=== PATIENT | male | born 1950 | race African-American/Black ===

== ENCOUNTER 2016-08-25 04:14 | Emergency (ER) | payer MEDICARE, OTHER ==
[~2016-08-25] VITALS: Ht 177.8 cm; Wt 87.0 kg
[~2016-08-25 04:14] MED LIST: ASPI325T2 PO; IBUP-1510 PO; LEVE1000 PO; LOSA50TA20 PO; MULT-1146 PO; NIFE30TA94 PO
[2016-08-25] MEDS ORDERED: MORPHINE SULFATE 4 MG/ML CPJ (NOT FOR IM USE) IV ONE ×2 (05:15→06:00)
[2016-08-25] MEDS ORDERED: ONDANSETRON HCL 4MG/2ML VIAL IV ONE (05:15)
[2016-08-25 05:23] LABS: BASOPHILS % 0.9 % (0.0-2.0); EOSINOPHILS % 4.5 % (0.0-5.0); HEMATOCRIT. 34.7 % (42.0-52.0); HEMOGLOBIN. 12.5 g/dL (14.0-18.0); LYMPHOCYTES % 42.1 % (20.0-50.0); MEAN CORPUSCULAR HEMOGLOBIN 30.4 pg (28.0-32.0); MEAN CORPUSCULAR HGB CONC 35.9 g/dL (31.0-37.0); MEAN CORPUSCULAR VOLUME 84.6 fL (80.0-94.0); MEAN PLATELET VOLUME 7.8 fl (7.4-10.4); MONOCYTES % 8.4 % (2.0-8.0); NEUTROPHILS % 44.1 % (40.0-76.0); PLATELET 252 x1000/uL (130-400); RED CELL DISTRIBUTION WIDTH 14.4 % (11.6-14.6); WHITE BLOOD COUNT 6.7 x1000/uL (4.5-11.0)
[2016-08-25 05:29] LABS: CHLORIDE 111 mEq/L (98-107); INDEX HEMOLYSI 1 (1-3); INDEX ICTERIC 1 (1-4); INDEX LIPEMIC 1 (1-3)
[2016-08-25 05:37] LABS: ALANINE AMINOTRANSFERASE 18 IU/L (13-61); ALBUMIN 3.4 g/dL (3.4-5.0); ANION GAP 11; CALCIUM 8.7 mg/dL (8.5-10.1); CARBON DIOXIDE 26 mEq/L (21-32); UREA NITROGEN BLOOD 12 mg/dL (7-21); eGFR > 60 mL/min (>60)
[2016-08-25] MEDS ORDERED: CLONIDINE 0.2MG TABLET PO ONE (06:15)
[2016-08-25] MEDS ORDERED: LABETALOL HCL 20MG/4ML CARPUJECT IV PRN (07:15)
[2016-08-25] MEDS ORDERED: LABETALOL 5MG/ML SYR 20 MG/4 ML SYRINGE IV PRN (07:50)
[2016-08-25 09:34] VITALS: BP 141/95
== END 2016-08-25 09:37 | disposition home or self-care (01) ==
LOC: ER 04:18
DX: R51 Headache (principal); I10 Essential (primary) hypertension; F17.210 Nicotine dependence, cigarettes, uncomplicated; Z79.82 Long term (current) use of aspirin; Z88.8 Allergy status to other drugs, medicaments and biological substances; Z79.899 Other long term (current) drug therapy
CPT/HCPCS: 36415; 70450; 80053; 85025; 96374; 96375; 96376; 99285; J2270; J2405; J3490; Z7610

== ENCOUNTER 2016-09-22 00:12 | Emergency (ER) | payer MEDICARE, OTHER ==
[~2016-09-22] VITALS: Ht 177.8 cm; Wt 86.0 kg
[~2016-09-22 00:12] MED LIST changes: +ASPI-986 PO; -ASPI325T2 PO
[2016-09-22] MEDS ORDERED: METOCLOPRAMIDE HCL 10MG/2ML VIAL IV ONE (02:45)
[2016-09-22] MEDS ORDERED: DIPHENHYDRAMINE 50MG/ML VIAL IV ONE (02:45)
[2016-09-22 05:05] VITALS: BP 144/88
== END 2016-09-22 05:05 | disposition home or self-care (01) ==
LOC: ER 00:12
DX: R51 Headache (principal); I10 Essential (primary) hypertension; I25.2 Old myocardial infarction; Z87.891 Personal history of nicotine dependence; Z88.8 Allergy status to other drugs, medicaments and biological substances; Z79.82 Long term (current) use of aspirin
CPT/HCPCS: 70450; 96374; 96375; 99284; J1200; J2765

== ENCOUNTER 2016-12-02 18:29 | Emergency (ER) | payer MEDICARE, OTHER ==
[~2016-12-02] VITALS: Ht 175.3 cm; Wt 80.0 kg
[~2016-12-02 18:29] MED LIST changes: -IBUP-1510 PO; +IBUP-2030 PO
[2016-12-02] MEDS ORDERED: LOSARTAN POTASSIUM 50 MG TABLET PO SCH (23:15)
[2016-12-02] MEDS ORDERED: HYDROCODONE/ACETAMINOPHEN 5/325MG TABLET PO NR (23:16)
[2016-12-02 23:46] LABS: EOSINOPHILS % 4.3 % (0.0-5.0); MEAN CORPUSCULAR HEMOGLOBIN 30.6 pg (28.0-32.0); MONOCYTES % 9.8 % (2.0-8.0)
[2016-12-02 23:50] LABS: CHLORIDE 108 mEq/L (98-107)
[2016-12-02 23:51] LABS: PROTHROMBIN TIME 10.7 sec (9.4-11.6)
[2016-12-02 23:59] LABS: CARBON DIOXIDE 26 mEq/L (21-32); ETHANOL BLOOD < 10 mg/dL
[2016-12-03 00:11] LABS: BASOPHILS % 0.7 % (0.0-2.0); HEMATOCRIT. 38.3 % (42.0-52.0); HEMOGLOBIN. 13.7 g/dL (14.0-18.0); LYMPHOCYTES % 36.7 % (20.0-50.0); MEAN CORPUSCULAR VOLUME 85.2 fL (80.0-94.0); MEAN PLATELET VOLUME 8.3 fl (7.4-10.4); NEUTROPHILS % 48.5 % (40.0-76.0); PLATELET 282 x1000/uL (130-400); RED BLOOD CELL COUNT 4.49 mill/uL (4.7-6.1); RED CELL DISTRIBUTION WIDTH 13.4 % (11.6-14.6)
[2016-12-03 00:28] LABS: CLARITY URINE CLEAR (CLEAR); COLOR URINE YELLOW (YELLOW); GLUCOSE URINE NEGATIVE (NEGATIVE); KETONES URINE NEGATIVE (NEGATIVE); LEUKOCYTE ESTERASE URINE NEGATIVE (NEGATIVE); NITRITE URINE NEGATIVE (NEGATIVE); OCCULT BLOOD URINE NEGATIVE (NEGATIVE); PROTEIN URINE NEGATIVE (NEGATIVE)
[2016-12-03 00:40] LABS: *AMPHETAMINES SCREEN URINE NEGATIVE (NEGATIVE); *BARBITURATES SCREEN URINE NEGATIVE (NEGATIVE); *BENZODIAZEPINES SCREEN URINE NEGATIVE (NEGATIVE); *COCAINE SCREEN URINE NEGATIVE (NEGATIVE); CANNABINOID URINE SCREEN NEGATIVE (NEGATIVE); METHADONE URINE SCREEN NEGATIVE (NEGATIVE); OPIATES URINE SCREEN PRESUMTIVE POSITIVE (NEGATIVE); PHENCYCLIDINE URINE SCREEN NEGATIVE (NEGATIVE)
[2016-12-03 01:00] VITALS: BP 180/88
== END 2016-12-03 01:00 | disposition home or self-care (01) ==
LOC: ER 18:57
DX: M79.604 Pain in right leg (principal); G89.29 Other chronic pain; I10 Essential (primary) hypertension; I69.351 Hemiplegia and hemiparesis following cerebral infarction affecting right dominant side; Z79.82 Long term (current) use of aspirin; Z98.890 Other specified postprocedural states
CPT/HCPCS: 36415; 80053; 80305; 81003; 85025; 85610; 93005; 93970; 99285; G0482

== ENCOUNTER 2017-01-21 02:09 | Emergency (ER) | payer MEDICARE, OTHER ==
[~2017-01-21] VITALS: Ht 182.9 cm; Wt 91.0 kg
[2017-01-21] MEDS ORDERED: MORPHINE SULFATE 4 MG/ML CPJ (NOT FOR IM USE) IV STA (03:23)
[2017-01-21] MEDS ORDERED: ONDANSETRON HCL 4MG/2ML VIAL IV STA (03:23)
[2017-01-21] MEDS ORDERED: SODIUM CHLORIDE 0.9% 1,000 ML IV ONE (03:23)
[2017-01-21 03:41] LABS: EOSINOPHILS % 5.4 % (0.0-5.0); HEMATOCRIT. 34.8 % (42.0-52.0); HEMOGLOBIN. 12.6 g/dL (14.0-18.0); LYMPHOCYTES % 34.7 % (20.0-50.0); MEAN CORPUSCULAR HEMOGLOBIN 30.6 pg (28.0-32.0); MEAN CORPUSCULAR VOLUME 84.8 fL (80.0-94.0); MEAN PLATELET VOLUME 7.8 fl (7.4-10.4); NEUTROPHILS % 50.9 % (40.0-76.0); PLATELET 285 x1000/uL (130-400); RED CELL DISTRIBUTION WIDTH 13.6 % (11.6-14.6)
[2017-01-21 03:49] LABS: INR 1.1
[2017-01-21 03:55] LABS: CARBON DIOXIDE 27 mEq/L (21-32); CHLORIDE 109 mEq/L (98-107); CREATINE KINASE 232 IU/L (39-308); ETHANOL BLOOD < 10 mg/dL
[2017-01-21] MEDS ORDERED: MORPHINE SULFATE 10 MG/ML CPJ IV NR (04:15)
[2017-01-21] MEDS ORDERED: HYDRALAZINE HCL 50MG TABLET PO ONE (08:45)
[2017-01-21] MEDS ORDERED: ACETAMINOPHEN WITH CODEINE 300/30MG TABLET PO ONE (08:45)
[2017-01-21] MEDS ORDERED: KETOROLAC 30MG/ML VIAL IV ONE (10:15)
[2017-01-21 10:42] VITALS: BP 193/94
== END 2017-01-21 10:55 | disposition home or self-care (01) ==
LOC: ER 02:09
DX: M79.604 Pain in right leg (principal); Z99.3 Dependence on wheelchair; R73.9 Hyperglycemia, unspecified; Z86.73 Personal history of transient ischemic attack (TIA), and cerebral infarction without residual deficits; G89.29 Other chronic pain
CPT/HCPCS: 36415; 80053; 82550; 85025; 85610; 93971; 96374; 96375; 99285; G0482; J1885; J2270; J2405; J7030

== ENCOUNTER 2017-01-21 13:39 | Emergency (ER) | payer MEDICARE, OTHER | END 2017-01-21 18:30 | disposition left against medical advice (07) | LOC: ER 18:14 | DX: Z53.21 Procedure and treatment not carried out due to patient leaving prior to being seen by health care provider (principal) ==